=== PATIENT | male | born 1955 | race Caucasian/White ===

== ENCOUNTER 2024-10-20 08:59 | Outpatient (CLI) | payer OTHER | END 2024-10-20 09:07 | disposition home or self-care (01) | LOC: RAD 08:59 | DX: R07.9 Chest pain, unspecified (principal) ==

== ENCOUNTER 2024-10-31 07:45 | Inpatient (IN) | payer OTHER ==
[~2024-10-31] VITALS: Ht 30.5 cm; Wt 79.4 kg
[2024-10-31] MEDS ORDERED: ATACAND32 MG PO (08:35)
[2024-10-31] MEDS ORDERED: ECOTRIN81 MG PO (08:35)
[2024-10-31] MEDS ORDERED: HUMIRA PEN40 MG/0.2 SQ (08:35)
[2024-10-31] MEDS ORDERED: LIPITOR80 MG PO (08:36)
[2024-10-31] MEDS ORDERED: HYDROCHLOROTHIA25 MG PO (08:36)
[2024-10-31] MEDS ORDERED: MYSOLINE50 MG PO (08:36)
[2024-10-31] MEDS ORDERED: LIPITOR40 M1 PO (08:37)
[2024-10-31] MEDS ORDERED: VITAMIN D310 MCG/1 M (08:37)
[2024-10-31] MEDS ORDERED: METFORMIN HCL1000 M2 PO (08:38)
[2024-10-31] MEDS ORDERED: TRULICITY0.75 MG/0. SQ (08:38)
[2024-10-31] MEDS ORDERED: FENOFIBRATE134 MG (08:39)
[2024-11-06] MEDS ORDERED: VANCOMYCIN HCL 1,000 MG VIAL ONE ×2 (10:39→12:37)
[2024-11-06] MEDS ORDERED: CEFAZOLIN SODIUM 1,000 MG VIAL ONE (10:40)
[2024-11-06] MEDS ORDERED: METHYLPREDNISOLONE ACETATE 80 MG/ML VIAL ONE (12:35)
[2024-11-06] MEDS ORDERED: HEMOSTATIC MATRIX WITH THROMBIN KIT TOP ONE ×2 (12:36→15:15)
[2024-11-06] MEDS ORDERED: METHYLPREDNISOLONE SOD SUCC 125 MG VIAL ONE (12:37)
[2024-11-06] MEDS ORDERED: MEDROLPACK PO (13:43)
[2024-11-06] MEDS ORDERED: PERCOCET 5-3251 EACH PO (13:43)
[2024-11-06] MEDS ORDERED: AMOX-CLAV 875-1 EACH PO (13:44)
[2024-11-06] MEDS ORDERED: GABAPENTIN100 M2 PO (13:44)
[2024-11-06] MEDS ORDERED: COLACE100 MG PO (13:44)
[2024-11-06] MEDS ORDERED: ZOFRAN8 MG PO (13:45)
[2024-11-06] MEDS ORDERED: NEURONTIN800 MG PO (13:45)
[2024-11-06] MEDS ORDERED: ENALAPRILAT DIHYDRATE 1.25 MG/ML VIAL IV PRN (14:15)
[2024-11-06] MEDS ORDERED: 0.9 % SODIUM CHLORIDE 1,000 ML IV SCH (14:15)
[2024-11-06] MEDS ORDERED: PROMETHAZINE HCL 50 MG/ML AMPUL IM PRN (14:15)
[2024-11-06] MEDS ORDERED: METHYLPREDNISOLONE ACETATE 80 MG/ML VIAL IM ONE (15:15)
[2024-11-06] MEDS ORDERED: VANCOMYCIN HCL 1,000 MG VIAL IV ONE (15:15)
[2024-11-06] MEDS ORDERED: VANCOMYCIN HCL 1,000 MG VIAL SPEPROC ONE (15:15)
[2024-11-06] MEDS ORDERED: CEFAZOLIN SODIUM 1,000 MG VIAL IV ONE (15:15)
[2024-11-06] MEDS ORDERED: VANCOMYCIN HCL 1,000 MG VIAL IR ONE (15:15)
[2024-11-06] MEDS ORDERED: METHYLPREDNISOLONE SOD SUCC 125 MG VIAL IV ONE (15:15)
[2024-11-06] MEDS ORDERED: MORPHINE SULFATE 4 MG/ML CARTRIDGE IV SCH (17:00)
[2024-11-06] MEDS ORDERED: METHYLPREDNISOLONE SOD SUCC 125 MG VIAL IV SCH (17:00)
[2024-11-06] MEDS ORDERED: HYDROCHLOROTHIAZIDE 25 MG TABLET PO SCH (17:00)
[2024-11-06] MEDS ORDERED: DOCUSATE SODIUM 100MG CAP PO SCH (17:00)
[2024-11-06] MEDS ORDERED: CEFAZOLIN SODIUM 1,000 MG in 0.9 % SODIUM CHLORIDE 50 ML IV SCH (17:00)
[2024-11-06] MEDS ORDERED: MetFORMIN HCL 1000 MG TABLET PO SCH (17:00)
[2024-11-06] MEDS ORDERED: FAMOtidine 20 MG TABLET PO SCH (17:00)
[2024-11-06] MEDS ORDERED: MORPHINE SULFATE 4 MG/ML VIAL IV ONE ×2 (18:45→21:00)
[2024-11-06] MEDS ORDERED: ACETAMINOPHEN 500 MG GEL..CAP PO SCH (20:00)
[2024-11-06] MEDS ORDERED: VANCOMYCIN HCL 1,000 MG VIAL IV SCH (21:00)
[2024-11-06] MEDS ORDERED: GABAPENTIN 800 MG TABLET PO SCH (21:00)
[2024-11-07] MEDS ORDERED: SODIUM CHLORIDE 0.45 % 1,000 ML IV SCH
[2024-11-07] MEDS ORDERED: METHYLPREDNISOLONE SOD SUCC 125 MG VIAL ONE (00:09)
[2024-11-07] MEDS ORDERED: CEFAZOLIN SODIUM 1,000 MG VIAL ONE (00:09)
[2024-11-07] MEDS ORDERED: ACETAMINOPHEN 500 MG GEL..CAP PO ONE (00:18)
[2024-11-07 03:48] VITALS: BP 166/62; O2SAT 95
[2024-11-07] MEDS ORDERED: OxyCODONE HCL 5 MG TABLET (ROXICODONE) PO SCH (06:01)
[2024-11-07] MEDS ORDERED: VANCOMYCIN HCL 1,000 MG VIAL ONE ×2 (06:33→14:01)
[2024-11-07 07:45] LABS: BASO % 0.1 % (0.1-1.2); HEMATOCRIT 42.8 % (40.1-51.0); LYMPH # 1.12 (1.18-3.74); LYMPH % 7.7 % (19.3-53.1); MEAN CORPUSCULAR HEMOGLOBIN 26.2 pg (25.6-32.2); MONO % 4.1 % (4.7-12.5); NEUT # 12.81 (1.56-6.13); NEUT % 87.7 % (34.0-71.1); RED BLOOD COUNT 4.96 M/uL (4.63-6.08); RED CELL DISTRIBUTION WIDTH 14.7 % (11.6-14.4)
[2024-11-07 07:55] LABS: PLATELET COUNT 99 K/uL (163-369)
[2024-11-07 08:28] LABS: CALCIUM 8.2 mg/dL (8.5-10.1); CREATININE SERUM 0.95 mg/dL (0.70-1.30); GFR 79.07; POTASSIUM 4.75 mEq/L (3.5-5.1)
[2024-11-07 08:51] VITALS: BP 151/70; O2SAT 97
[2024-11-07] MEDS ORDERED: ATORVASTATIN CALCIUM 40 MG TABLET PO SCH (09:00)
[2024-11-07] MEDS ORDERED: TAMSULOSIN HCL 0.4 MG CAP PO SCH (09:00)
[2024-11-07 13:05] LABS: COVID-19 AG NEGATIVE (NEGATIVE)
[2024-11-07 14:00] VITALS: BP 118/64; O2SAT 93
[2024-11-08 00:21] VITALS: BP 126/58; O2SAT 94
[2024-11-08 08:00] VITALS: BP 145/69; O2SAT 95
== END 2024-11-08 18:13 | disposition home or self-care (01) | DRG 428 ==
LOC: SURH 11-06 07:45 → O/R 11-06 09:57 → SURH 11-06 13:30
PROVIDERS: ADMIT Orthopaedic Surgery Orthopaedic Surgery of the Spine; ATTEND Orthopaedic Surgery Orthopaedic Surgery of the Spine
PROC: 0SG1071 Fusion of 2 or more Lumbar Vertebral Joints with Autologous Tissue Substitute, Posterior Approach, Posterior Column, Open Approach (ICD-10-PCS; 2024-11-06)
PROC: 0ST20ZZ Resection of Lumbar Vertebral Disc, Open Approach (ICD-10-PCS; 2024-11-06)
PROC: 0QB30ZZ Excision of Left Pelvic Bone, Open Approach (ICD-10-PCS; 2024-11-06)
PROC: 07DR0ZZ Extraction of Iliac Bone Marrow, Open Approach (ICD-10-PCS; 2024-11-06)
PROC: 4A1104G Monitoring of Peripheral Nervous Electrical Activity, Intraoperative, Open Approach (ICD-10-PCS; 2024-11-06)
PROC: XRGC0R7 Fusion of 2 or more Lumbar Vertebral Joints using Custom-Made Anatomically Designed Interbody Fusion Device, Open Approach, New Technology Group 7 (ICD-10-PCS; principal; 2024-11-06 13:30)
DX: M43.16 Spondylolisthesis, lumbar region (principal); M48.062 Spinal stenosis, lumbar region with neurogenic claudication; M51.360 Other intervertebral disc degeneration, lumbar region with discogenic back pain only; I10 Essential (primary) hypertension